=== PATIENT | female | born 1980 | race Caucasian/White ===

== ENCOUNTER 2017-12-05 11:51 | Emergency (ER) | payer MEDICAID ==
[2017-12-05] MEDS ORDERED: Dexamethasone/Tobramycin 0.1-0.3% Ophth Susp 2.5 ML Bottle EYELF SCH (12:15)
--- NOTE | 2017-12-05 12:15 | EDM.PDOC ---
ED HPI GENERAL MEDICAL PROBLEM - General Chief Complaint: ENT Problem Stated Complaint: L eye pain Time Seen by Provider: 12/05/17 11:55 Source of Information: Reports: Patient History Limitations: Reports: No Limitations - History of Present Illness Onset: Gradual Duration: Day(s): (3) Location: Reports: Other (LEFT eye) Quality: Reports: Burning Severity: Moderate Left Eye Pain Score (Numeric/FACES): 9 - Related Data Allergies Allergy/AdvReac Type Severity Reaction Status Date / Time No Known Allergies Allergy Verified 12/05/17 11:55 Home Meds: Home Meds . 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 Musculoskeletal History: Reports: None Neurological History: Reports: None Psychiatric History: Reports: None Endocrine/Metabolic History: Reports: None Hematologic History: Reports: None Immunologic History: Reports: None Oncologic (Cancer) History: Reports: None Dermatologic History: Reports: None - Infectious Disease History Infectious Disease History: Reports: None - Past Surgical History Head Surgeries/Procedures: Reports: None HEENT Surgical History: Reports: None Cardiovascular Surgical History: Reports: None Respiratory Surgical History: Reports: None GI Surgical History: Reports: Appendectomy Female Surgical History: Reports: Section, Hysterectomy Endocrine Surgical History: Reports: None Neurological Surgical History: Reports: None Musculoskeletal Surgical History: Reports: None Dermatological Surgical History: Reports: None Social & Family History - Tobacco Use Smoking Status *Q: Never Smoker ED ROS GENERAL - Review of Systems Review Of Systems: See Below Constitutional: Reports: No Symptoms HEENT: Reports: Other (Reports LEFT eye irritation, swelling of lids, and tearing. Denies photophobia, vision changes, purulence, injury, FB) Respiratory: Reports: No Symptoms Cardiovascular: Reports: No Symptoms GI/Abdominal: Reports: No Symptoms Skin: Reports: No Symptoms Neurological: Reports: No Symptoms ED EXAM GENERAL W FULL EYE - Physical Exam Exam: See Below Exam Limited By: No Limitations General Appearance: Alert, WD/WN, No Apparent Distress Eye Exam: Bilateral Eye: EOMI, Normal Fundi, Periorbital Changes (swelling of superior and inferior eyelids), PERRL Eyelids: Bilateral: Edema Conjunctiva & Sclera: Bilateral: Normal Appearance Extraocular Movements: Bilateral: Intact Pupillary Reaction: Bilateral: Brisk Anterior Chamber: Bilateral: Normal Appearance Posterior Chamber: Bilateral: Normal Funduscopic Ears: Normal External Exam, Normal Canal, Hearing Grossly Normal, Normal TMs Nose: Normal Inspection, Normal Mucosa, No Blood Throat/Mouth: Normal Inspection, Normal Lips, Normal Teeth, Normal Gums, Normal Oropharynx, Normal Voice, No Airway Compromise Head: Atraumatic, Normocephalic Neck: Normal Inspection, Supple, Non-Tender, Full Range of Motion Respiratory/Chest: No Respiratory Distress, Lungs Clear Cardiovascular: Normal Peripheral Pulses, Regular Rate, Rhythm Course - Vital Signs Last Recorded V/S: Last Vital Signs Temp 37.1 C 12/05/17 11:52 Pulse 65 12/05/17 11:52 Resp 18 12/05/17 11:52 BP 131/82 12/05/17 11:52 Pulse Ox 98 12/05/17 11:52 - Orders/Labs/Meds Meds: Medications Discontinued Medications Generic Name Dose Route Start Last Admin Trade Name Freq PRN Reason Stop Dose Admin Tobramycin/Dexamethasone 1 ml 12/05/17 12:15 12/05/17 12:13 Tobradex Ophth Susp EYELF 1 drop Q4H SUSANNE Administration Departure - Departure Time of Disposition: 12:15 Disposition: Home, Self-Care 01 Clinical Impression: Pain, eye, left - Discharge Information Referrals: Nery Monet PA-C [Primary Care Provider] - Forms: ED Department Discharge Additional Instructions: Please use the medication as directed. Follow up with Dr. Pereira in [place] first thing in the morning. Return to the ED for any new or worse problems. - Assessment/Plan Assessment:: Unclear underlying etiology. I do not suspect acute angle glaucoma, trauma, FB or other emergent pathology. I spoke with ED provider in [place] and discussed the case with him. he recommends opthalmic tobradex and fu with Dr. Pereira tomorrow for detailed eye workup. I Rx for tobradex with THP given to patient. I advised the patient to rest, hydrate, take all Rx as directed, fu with Dr. Pereira tomorrow AM, return to ED if change or worse. Patient reports understanding and agreement with plan. DC home stable.
== END 2017-12-05 12:20 | disposition home or self-care (01) ==
LOC: CC.ED 11:51
DX: H57.12 Ocular pain, left eye (principal)
CPT/HCPCS: 99282

== ENCOUNTER 2018-10-21 12:17 | Emergency (ER) | payer MEDICAID ==
[2018-10-21] MEDS ORDERED: Amoxicillin 500 MG Cap PO ONE (12:18)
[2018-10-21] MEDS ORDERED: cefTRIAXone 1 GM Vial IM ONE (13:28)
[2018-10-21] MEDS ORDERED: Take Home: Amoxicillin 500 MG Cap, 2 Cap Pack PO ONE (13:28)
--- NOTE | 2018-10-21 13:28 | EDM.PDOC ---
ED HPI GENERAL MEDICAL PROBLEM - General Chief Complaint: General Stated Complaint: THROAT PAIN Time Seen by Provider: 10/21/18 12:30 Source of Information: Reports: Patient History Limitations: Reports: No Limitations - History of Present Illness INITIAL COMMENTS - FREE TEXT/NARRATIVE: Patricia is 37 yo female who presents to the ED with complaints of a sore throat. She states symptoms started a few days ago and seems to be getting worse. has difficulty with swallowing. Denies any shortness of breath. 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 Denies any fevers. Duration: Getting Worse Throat Pain Score (Numeric/FACES): 8 - Related Data Allergies Allergy/AdvReac Type Severity Reaction Status Date / Time No Known Allergies Allergy Verified 12/05/17 11:55 Home Meds: Home Meds . 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 Musculoskeletal History: Reports: None Neurological History: Reports: None Psychiatric History: Reports: None Endocrine/Metabolic History: Reports: None Hematologic History: Reports: None Immunologic History: Reports: None Oncologic (Cancer) History: Reports: None Dermatologic History: Reports: None - Infectious Disease History Infectious Disease History: Reports: None - Past Surgical History Head Surgeries/Procedures: Reports: None HEENT Surgical History: Reports: None Cardiovascular Surgical History: Reports: None Respiratory Surgical History: Reports: None GI Surgical History: Reports: Appendectomy Female Surgical History: Reports: Section, Hysterectomy Endocrine Surgical History: Reports: None Neurological Surgical History: Reports: None Musculoskeletal Surgical History: Reports: None Dermatological Surgical History: Reports: None Social & Family History - Tobacco Use Smoking Status *Q: Never Smoker - Alcohol Use Alcohol Use History: No - Recreational Drug Use Recreational Drug Use: No - Living Situation & Occupation Occupation: Employed ED ROS GENERAL - Review of Systems Review Of Systems: See Below Constitutional: Reports: Decreased Appetite. Denies: Fever, Chills HEENT: Reports: Ear Pain (radiating to right ear), Throat Pain, Throat Swelling. Denies: Nose Pain, Sinus Problem Respiratory: Reports: No Symptoms. Denies: Shortness of Breath, Wheezing, Cough Cardiovascular: Reports: No Symptoms GI/Abdominal: Reports: No Symptoms Skin: Reports: No Symptoms Neurological: Reports: No Symptoms ED EXAM, GENERAL - Physical Exam Exam: See Below Exam Limited By: No Limitations General Appearance: Alert, No Apparent Distress Ears: Normal External Exam, Normal Canal, Hearing Grossly Normal, Normal TMs Nose: Normal Inspection, Normal Mucosa, No Blood Throat/Mouth: No Airway Compromise, Dysphagia, Inflammation, Other (tonsillar swelling right worse than left. No exudate noted. Uvula swollen. ) Head: Atraumatic, Normocephalic Neck: Tender Lateral (right submandibular) Respiratory/Chest: No Respiratory Distress, Lungs Clear, Normal Breath Sounds, No Accessory Muscle Use Cardiovascular: Regular Rate, Rhythm, No Murmur Neurological: Alert, Normal Cognition Psychiatric: Normal Affect, Normal Mood Skin Exam: Warm, Dry, Intact, Normal Color, No Rash Lymphatic: No Adenopathy Course - Vital Signs Last Recorded V/S: Last Vital Signs Temp 98.1 F 10/21/18 13:51 Pulse 74 10/21/18 13:51 Resp 18 10/21/18 13:51 BP 111/67 10/21/18 13:51 Pulse Ox 98 10/21/18 13:51 - Orders/Labs/Meds Meds: Medications Discontinued Medications Generic Name Dose Route Start Last Admin Trade Name Cristina PRYasir Reason Stop Dose Admin Amoxicillin 3 packet 10/21/18 13:28 10/21/18 13:46 Take Home: Amoxicillin 500 Mg, 2 Cap Pack PO 10/21/18 13:29 Not Given ONETIME ONE Ceftriaxone Sodium 1 gm 10/21/18 13:28 10/21/18 13:46 Rocephin IM 10/21/18 13:29 1 gm ONETIME ONE Administration Lidocaine HCl 20 ml 10/21/18 13:29 10/21/18 13:46 Xylocaine 1% INJECT 10/21/18 13:30 20 ml ONETIME ONE Administration Methylprednisolone Sodium Succinate 125 mg 10/21/18 13:29 10/21/18 13:46 Solu-Medrol IM 10/21/18 13:30 125 mg NOW STA Administration Departure - Departure Time of Disposition: 14:10 Disposition: Home, Self-Care 01 Clinical Impression: Acute bacterial tonsillitis - Discharge Information Instructions: Tonsillitis, [id number], Strep Throat, [id number] Forms: ED Department Discharge Additional Instructions: 1) Amoxicillin 500mg three times a day for 10 days total. 2) tylenol and ibuprofen for discomfort. Dosage on bottle and recommend alternating every 3-4 hours 3) Push fluids 4) Rest 5) If any difficulty breathing or symptoms worsen, advise returning for reevaluation. - Problem List & Annotations (1) Acute bacterial tonsillitis SNOMED Code(s): 850529527 Code(s): J03.80 - ACUTE TONSILLITIS DUE TO OTHER SPECIFIED ORGANISMS; B96.89 - OTH BACTERIAL AGENTS THE CAUSE OF DISEASES CLASSD ELSWHR Status: Acute Current Visit: Yes - Problem List Review Problem List Initiated/Reviewed/Updated: Yes - Assessment/Plan Plan: Strep screen was negative. 1 gram of Rocephin given intramuscularly. Discharge instructions discussed with Patricia. I did not palpate or notice any tonsillar abscesses. Patricia was in no acute distress at discharge.
[2018-10-21] MEDS ORDERED: Lidocaine 1% 20 ML MDV INJECT ONE (13:29)
[2018-10-21] MEDS ORDERED: methylPREDNISolone Sodium Succinate 125 MG/2 ML SDV IM STA (13:29)
== END 2018-10-21 14:15 | disposition home or self-care (01) ==
LOC: CC.ED 12:17
DX: J03.80 Acute tonsillitis due to other specified organisms (principal); B96.89 Other specified bacterial agents as the cause of diseases classified elsewhere
CPT/HCPCS: 87430; 96372; 99282; J0696; J2930; A9270-GY

== ENCOUNTER 2021-05-10 14:27 | Emergency (ER) | payer BC ==
[2021-05-10] MEDS ORDERED: Take Home: Amoxicillin/Clavulanate K 875-125 MG Tab, 2 Tab Pack PO ONE (15:00)
--- NOTE | 2021-05-10 15:03 | EDM.PDOC ---
ED HPI GENERAL MEDICAL PROBLEM - General Chief Complaint: General Stated Complaint: L Ear Pain Time Seen by Provider: 05/10/21 14:40 Source of Information: Reports: Patient History Limitations: Reports: No Limitations - History of Present Illness INITIAL COMMENTS - FREE TEXT/NARRATIVE: Patricia is a 40 year old female who presents to ER with left ear pain. Is required to wear ear plugs while at work at [employer]. Had been having trouble with the blue silicone plugs as they had caused irritation to the canal. Switched to the foam plugs but could not get a good fit and didn't work well for her. Switched back to the blue plugs today. Was removing them today for her break and felt a pop in her left ear and then couldn't hear. [place] blood then in the ear canal. Feels like her hearing is not all that good at the moment. Onset: Today, Sudden Duration: Minutes:, Constant Location: Reports: Head Quality: Reports: Ache Severity: Mild Associated Symptoms: Reports: No Other Symptoms l ear Pain Score (Numeric/FACES): 5 - Related Data Allergies Allergy/AdvReac Type Severity Reaction Status Date / Time No Known Allergies Allergy Verified 05/10/21 14:29 Home Meds: Home Meds Amoxicillin/Potassium Clav [Augmentin 875-125 Tablet] 1 each PO BID #14 tablet 05/10/21 [Rx] Past Medical History HEENT History: Reports: None Cardiovascular History: Reports: None Respiratory History: Reports: None Gastrointestinal History: Reports: None Genitourinary History: Reports: None 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 Musculoskeletal History: Reports: None Neurological History: Reports: None Psychiatric History: Reports: None Endocrine/Metabolic History: Reports: None Hematologic History: Reports: None Immunologic History: Reports: None Oncologic (Cancer) History: Reports: None Dermatologic History: Reports: None - Infectious Disease History Infectious Disease History: Reports: None - Past Surgical History Head Surgeries/Procedures: Reports: None HEENT Surgical History: Reports: None Cardiovascular Surgical History: Reports: None Respiratory Surgical History: Reports: None GI Surgical History: Reports: Appendectomy Female Surgical History: Reports: Section, Hysterectomy Endocrine Surgical History: Reports: None Neurological Surgical History: Reports: None Musculoskeletal Surgical History: Reports: None Dermatological Surgical History: Reports: None Social & Family History - Family History Family Medical History: No Pertinent Family History - Tobacco Use Tobacco Use Status *Q: Never Tobacco User Second Hand Smoke Exposure: No - Caffeine Use Caffeine Use: Reports: None - Recreational Drug Use Recreational Drug Use: No - Living Situation & Occupation Occupation: Employed ED ROS GENERAL - Review of Systems Review Of Systems: See Below Constitutional: Denies: Fever, Chills HEENT: Reports: Ear Discharge, Ear Pain, Hearing Loss. Denies: Rhinitis, Sinus Problem, Throat Pain Respiratory: Denies: Shortness of Breath, Cough Cardiovascular: Denies: Chest Pain, Edema, Lightheadedness Endocrine: Denies: Fatigue GI/Abdominal: Reports: No Symptoms : Reports: No Symptoms Musculoskeletal: Reports: No Symptoms Skin: Reports: No Symptoms ED EXAM, GENERAL - Physical Exam Exam: See Below Exam Limited By: No Limitations General Appearance: Alert, WD/WN, No Apparent Distress Ears: Other (blood noted in left ear canal and in front of the TM. Difficult to assess the tympanic membrane for rupture due to the blood present. Right TM is normal) Neurological: Alert, Oriented Skin Exam: Warm, Dry Course - Vital Signs Last Recorded V/S: Last Vital Signs Temp 96.8 F L 05/10/21 14:31 Pulse 66 05/10/21 14:31 Resp 14 05/10/21 14:31 BP 133/63 05/10/21 14:31 Pulse Ox 99 05/10/21 14:31 - Orders/Labs/Meds Meds: Medications Discontinued Medications Generic Name Dose Route Start Last Admin Trade Name Cristina PRN Reason Stop Dose Admin Amoxicillin/Clavulanate Potassium 1 packet 05/10/21 15:00 Take Home: Amoxicillin/Clavulanate K 875-125 Mg Tab, 2 Tab Pack PO 05/10/21 15:01 ONETIME ONE Departure - Departure Time of Disposition: 15:01 Disposition: Home, Self-Care 01 Condition: Good Clinical Impression: Ruptured ear drum - Discharge Information *PRESCRIPTION DRUG MONITORING PROGRAM REVIEWED*: No *COPY OF PRESCRIPTION DRUG MONITORING REPORT IN PATIENT REX: No Prescriptions: Amoxicillin/Potassium Clav [Augmentin 875-125 Tablet] 1 each PO BID #14 tablet Instructions: Eardrum Rupture, [id number] Referrals: PCP,None [Primary Care Provider] - Forms: ED Department Discharge Additional Instructions: 1. Alternate tylenol with ibuprofen for fever or discomfort 2. Augmentin 875 mg twice a day for 7 days 3. Outer ear protection while at work 4. Follow up in 10 days with primary care provider for recheck of ear 5. Call with any questions or concerns. Sepsis Event Note (ED) - Evaluation Sepsis Screening Result: No Definite Risk - Focused Exam Vital Signs: Vital Signs Temp Pulse Resp BP Pulse Ox 05/10/21 14:31 96.8 F L 66 14 133/63 99
== END 2021-05-10 15:30 | disposition home or self-care (01) ==
LOC: CC.ED 14:27
DX: H72.92 Unspecified perforation of tympanic membrane, left ear (principal)
CPT/HCPCS: 99282; A9270-GY

== ENCOUNTER 2021-08-01 23:29 | Emergency (ER) | payer BC ==
[2021-08-01] MEDS ORDERED: Ketorolac 30 MG/ML SDV IVPUSH ONE (23:49)
[2021-08-01] MEDS ORDERED: Ondansetron 4 MG/2 ML SDV IVPUSH ONE (23:50)
[2021-08-01] MEDS ORDERED: Sodium Chloride 0.9% 1,000 ML IV ONE (23:56)
[2021-08-02] MEDS ORDERED: Orphenadrine 60 MG/2 ML Inj IM ONE (00:37)
[2021-08-02] MEDS ORDERED: Morphine 2 MG/ML SYRINGE IVPUSH ONE (02:06)
[2021-08-02 02:31] LABS: CHLORIDE,CL 104 mEq/L (98-106); SODIUM,NA 144 mEq/L (136-145)
[2021-08-02 02:34] LABS: PTT,PARTIAL THROMBOPLSTIN TIME 21.2 SEC (23.2-32.3)
== END 2021-08-02 03:16 ==
LOC: CC.ED 23:29
DX: S06.6X0A Traumatic subarachnoid hemorrhage without loss of consciousness, initial encounter (principal); Z87.891 Personal history of nicotine dependence; Z20.822 Contact with and (suspected) exposure to COVID-19; X50.0XXA Overexertion from strenuous movement or load, initial encounter; Y93.43 Activity, gymnastics; Y92.39 Other specified sports and athletic area as the place of occurrence of the external cause
CPT/HCPCS: 36415; 70450; 70460; 80053; 85025; 85610; 85730; 96372; 96374; 96375; 99284; 99285-25; J1885; J2270; J2360; J2405; J7030; U0002